=== PATIENT | female | born 1960 | race Caucasian/White ===

== ENCOUNTER 2017-02-22 09:56 | Emergency (ER) | payer OTHER ==
--- NOTE | ~2017-02-22 | CR151 ---
[facility] A Service of [facility] & [facility] RADIOLOGY TEXT RESULTS PATIENT: ALMA SINGH LOCATION: [facility] : 56 UNIT #: [id number] AGE: [address]: Sameera Hussein APRN SEX: F ORDER DR: [id number] [facility] [address] [place], [place] [address] [id number] E MR#: [id number] Acc #: [id number] NAME: ALMA SINGH : 1960 SEX: F STUDY DATE/TIME: 02/22/2017 11:25 UNIT: [facility] ROOM: STUDY DESCRIPTION: CR Hip Min 2 Views Rt Attending Physician: Sameera Hussein A.P.R.N. Ordering Physician: Ed Alan Blake M.D. MEDICAL IMAGING REPORT This report is preliminary unless electronic signature is present EXAM Right hip, 02/22/2017. HISTORY 57-year-old female with severe right hip pain, status post fall yesterday. COMPARISON None FINDINGS 2 views of the right hip demonstrate no evidence of a displaced fracture or dislocation. Bony pelvis appears intact. Sacrum and SI joints intact. IMPRESSION No evidence of acute fracture or dislocation. Dictated by... Corby Moses M.D. THIS IS AN ELECTRONICALLY VERIFIED REPORT Corby Moses M.D. at 02/23/2017 6:22 AM NAYELI/constance TD: 02/22/2017 12:02 JOB #: [id number] MEDICAL IMAGING REPORT Page 1 of 1 COPY
== END 2017-02-22 14:29 | disposition home or self-care (01) ==
LOC: CED 09:56
DX: S70.01XA Contusion of right hip, initial encounter (principal); J44.9 Chronic obstructive pulmonary disease, unspecified; Z87.891 Personal history of nicotine dependence; Z88.2 Allergy status to sulfonamides; Z88.8 Allergy status to other drugs, medicaments and biological substances; W19.XXXA Unspecified fall, initial encounter; Y92.096 Garden or yard of other non-institutional residence as the place of occurrence of the external cause
CPT/HCPCS: 73502; 96372; 99283; J2270

== ENCOUNTER 2017-06-08 15:38 | Emergency (ER) | payer OTHER ==
[~2017-06-08] VITALS: Ht 154.9 cm; Wt 44.9 kg
--- NOTE | ~2017-06-08 | CR63 ---
[facility] A Service of [facility] RADIOLOGY TEXT RESULTS PATIENT: ALMA SINGH LOCATION: [facility] : 56 UNIT #: [id number] AGE: [address]: Noble Samayoa MD SEX: F ORDER DR: [id number] [facility] [address] [place] [address] [place], [place] [address] [id number] E MR#: [id number] Acc #: [id number] NAME: ALMA SINGH : 1960 SEX: F STUDY DATE/TIME: 06/08/2017 17:08 UNIT: [facility] ROOM: STUDY DESCRIPTION: CR Chest 2 View Attending Physician: Noble Samayoa M.D. Ordering Physician: Noble Samayoa M.D. Primary Care Physician: Prema Fox Aprn MEDICAL IMAGING REPORT This report is preliminary unless electronic signature is present EXAM Two-view chest, 06/08/2017. INDICATION Severe COPD, back pain, hurts to breath. Symptoms recurred today after lifting bricks at home in the garden. TECHNIQUE Two views of the chest performed. COMPARISON No comparisons. FINDINGS The bones are osteoporotic. There is mild levoscoliosis of the mid thoracic spine. There is a mild wedge deformity of a mid to upper thoracic vertebral body that is age indeterminate without prior studies for comparison. Suggest correlation with patient point tenderness. This could also be further assessed with nonemergent MRI for assessment of marrow edema when clinically appropriate. Cardiac silhouette is within normal limits. There is elongation of the thoracic aorta secondary to the pulmonary hyperinflation. No evidence of volume overload. Lungs appear clear. No pneumothorax. IMPRESSION 1. Advanced emphysematous change without effusion or dense consolidation or pneumothorax. 2. There is a subtle wedge deformity of a mid to upper thoracic vertebral body that is age indeterminate. Correlate with patient point tenderness. We have no comparisons for this patient. [facility] A Service of [facility] RADIOLOGY TEXT RESULTS PATIENT: ALMA SINGH LOCATION: [facility] : 56 UNIT #: [id number] AGE: [address]: Noble Samayoa MD SEX: F ORDER DR: Dictated by... Casey Silva M.D. THIS IS AN ELECTRONICALLY VERIFIED REPORT Casey Silva M.D. at 06/08/2017 11:18 PM ROSA/constance TD: 06/08/2017 21:19 JOB #: [id number] MEDICAL IMAGING REPORT Page 1 of 1 COPY
--- NOTE | ~2017-06-08 | CR243 ---
[facility] A Service of [facility] RADIOLOGY TEXT RESULTS PATIENT: ALMA SINGH LOCATION: [facility] : 56 UNIT #: [id number] AGE: [address]: Noble Samayoa MD SEX: F ORDER DR: [id number] [facility] [address] [place], [place] [address] [id number] E MR#: [id number] Acc #: [id number] NAME: ALMA SINGH : 1960 SEX: F STUDY DATE/TIME: 06/08/2017 17:09 UNIT: [facility] ROOM: STUDY DESCRIPTION: CR Thoracic Spine 3 Views Attending Physician: Noble Samayoa M.D. Ordering Physician: Noble Samayoa M.D. Primary Care Physician: Prema Fox Aprn MEDICAL IMAGING REPORT This report is preliminary unless electronic signature is present EXAM Thoracic series, 06/08/2017 INDICATION 57-year-old female with severe COPD, back pain, hurts to breathe. Symptoms began today after lifting bricks in the garden. Former smoker. TECHNIQUE 3 views of the thoracic spine were performed. No comparisons. FINDINGS The bones are osteoporotic. There is mild levoscoliosis. Cervicothoracic junction intact. Mild wedge deformity of a mid to upper thoracic vertebral body, age indeterminate without prior studies for comparison. This is probably at about the T5 or T6 level. Suggest correlation with patient point tenderness. Alignment preserved. Mild degenerative disc disease. IMPRESSION 1. Mild wedge deformity of a mid to upper thoracic vertebral body that is age-indeterminate. Correlate with patient point tenderness. 2. Alignment preserved. Mild degenerative changes. 3. Emphysema. Dictated by... Casey Silva M.D. THIS IS AN ELECTRONICALLY VERIFIED REPORT Casey Silva M.D. at 06/08/2017 11:18 PM ROSA/daylin [facility] A Service of [facility] RADIOLOGY TEXT RESULTS PATIENT: ALMA SINGH LOCATION: [facility] : 56 UNIT #: [id number] AGE: [address]: Noble Samayoa MD SEX: F ORDER DR: TD: 06/08/2017 21:40 JOB #: [id number] MEDICAL IMAGING REPORT Page 1 of 1 COPY
== END 2017-06-08 19:00 | disposition home or self-care (01) ==
LOC: CED 15:38
DX: S22.009A Unspecified fracture of unspecified thoracic vertebra, initial encounter for closed fracture (principal); J44.9 Chronic obstructive pulmonary disease, unspecified; Z90.710 Acquired absence of both cervix and uterus; Z98.890 Other specified postprocedural states; X50.9XXA Other and unspecified overexertion or strenuous movements or postures, initial encounter
CPT/HCPCS: 71020; 72072; 99283